=== PATIENT | female | born 1930 | race Caucasian/White ===

== ENCOUNTER 2019-05-21 10:19 | Observation (INO) | payer OTHER ==
[2019-05-21 11:26] LABS: Absolute Lymphocytes (CBC) 0.9 K/uL (0.7-4.9); Basophils % 0.5 % (0-1.3); Hematocrit 40.9 % (36.0-45.0); Lymphocytes % 12.4 % (15.3-44.8); RBC Red Blood Cell Count 4.51 M/uL (3.86-4.86)
[2019-05-21 11:35] LABS: Potassium 4.1 mmol/L (3.5-5.1)
--- NOTE | 2019-05-21 11:58 | RAD REPORT ---
EXAM DESCRIPTION: US - Extremity Venous Uni Ltd - 05/21/2019 11:46 am CLINICAL HISTORY: Left leg pain and swelling COMPARISON: None. TECHNIQUE: Real-time sonographic evaluation of the left lower extremity deep venous system was perfo rmed. FINDINGS: Echogenic debris is present filling are mostly filling the left common femoral, superficia l femoral and popliteal veins. Vessels show little or no compression. Little or no flow is identifiab le. No DVT seen in the ankle or calf visualized veins. No mass or abnormal fluid collection in the so ft tissues. IMPRESSION: Acute left leg deep venous thrombosis from groin to knee.
[2019-05-21] MEDS ORDERED: NA CHLORIDE 0.9% 1,000 ML ONE (12:08)
[2019-05-21] MEDS ORDERED: ENOXAPARIN 80 MG/0.8 ML SQ ONE (12:34)
--- NOTE | 2019-05-21 12:50 | ER ---
Nurse's Notes [facility] Name: Alexandria Gallegos Age: 88 yrs Sex: Female : 1930 Arrival Date: 05/21/2019 Time: 10:21 Bed 15 Private MD: Pritesh Flannery C Diagnosis: Acute embolism and thrombosis of deep veins of lower extremity Presentation: 05/21 10:50 Presenting complaint: Patient states: swelling to left leg since yesterday, denies iw pain. Transition of care: patient was not received from another setting of care. Onset of symptoms was May 20, 2019. Risk Assessment: Do you want to hurt yourself or someone else? Patient reports no desire to harm self or others. Initial Sepsis Screen: Does the patient meet any 2 criteria? No. Patient's initial sepsis screen is negative. Does the patient have a suspected source of infection? No. Patient's initial sepsis screen is negative. Care prior to arrival: None. 10:50 Method Of Arrival: Wheelchair iw 10:50 Acuity: ADI 3 iw Triage Assessment: 11:00 General: Appears in no apparent distress. comfortable, Behavior is calm, cooperative, bp appropriate for age. Pain: Complains of pain in left leg. EENT: No deficits noted. Neuro: No deficits noted. Cardiovascular: No deficits noted. Respiratory: No deficits noted. GI: No signs and/or symptoms were reported involving the gastrointestinal system. : No signs and/or symptoms were reported regarding the genitourinary system. Derm: No deficits noted. Musculoskeletal: Swelling present in left leg. Historical: - Allergies: 11:05 No Known Allergies; iw - Home Meds: 11:05 amlodipine 5 mg tab 1 tab once daily [Active]; Metoprolol Tartrate Oral [Active]; iw vitamins [Active]; - PMHx: 11:05 Hypertension; iw - PSHx: 11:05 bile duct bypass; Cholecystectomy; iw - Immunization history:: Adult Immunizations up to date. - Social history:: Smoking status: Patient/guardian denies using tobacco. - Ebola Screening: : Patient negative for fever greater than or equal to 101.5 degrees Fahrenheit, and additional compatible Ebola Virus Disease symptoms Patient denies exposure to infectious person Patient denies travel to an Ebola-affected area in the 21 days before illness onset No symptoms or risks identified at this time. Screenin:36 Abuse screen: Denies threats or abuse. Denies injuries from another. Nutritional bp screening: No deficits noted. Tuberculosis screening: No symptoms or risk factors identified. Fall Risk None identified. Assessment: 11:05 General: SEE TRIAGE NOTE. bp 12:00 Reassessment: PT TO U/S. bp 13:54 Reassessment: ADMIT IN PROCESS. bp 14:54 Reassessment: appears to be comfortable. denies any pain. patient and family updated on rv length of wait for admission. Vital Signs: 10:50 BP 140 / 72; Pulse 105; Resp 18 S; Temp 98.6(TE); Pulse Ox 100% on R/A; Weight 77.11 kg;bp 11:47 BP 93 / 69; Pulse 97; Resp 17; Temp 97.8(O); Pulse Ox 98% on R/A; mh5 12:34 BP 119 / 58; Pulse 90; Resp 18; Temp 98.1(O); Pulse Ox 97% on R/A; mh5 13:54 BP 128 / 64; Pulse 92; Resp 14; Pulse Ox 97% ; bp 15:30 BP 123 / 73; Pulse 92; Resp 18; Temp 97.9(O); Pulse Ox 97% on R/A; mh5 16:12 BP 129 / 64; Pulse 94; Resp 18; Temp 98.5(O); Pulse Ox 96% on R/A; mh5 ED Course: 10:21 Patient arrived in ED. rg4 10:22 Pritesh Flannery MD is Private Physician. rg4 10:35 Robert Garza MD is Attending Physician. gs 10:39 Ludwig Garcia, RN is Primary Nurse. bp 11:04 Triage completed. iw 11:06 Arm band placed on. iw 11:13 Inserted saline lock: 22 gauge in right antecubital area, using aseptic technique. bp Blood collected. 11:36 Patient has correct armband on for positive identification. Bed in low position. Call bp light in reach. Side rails up X2. 11:48 US Extremity Venous Unilateral Ltd In Process Unspecified. EDMS 12:48 Pritesh Flannery MD is Hospitalizing Provider. gs 14:38 Report received from LUDWIG Lopes RN. rv 16:21 No provider procedures requiring assistance completed. Patient admitted, IV remains in rv place. Administered Medications: 12:07 Drug: NS 0.9% 1000 ml Route: IV; Rate: 1 bolus; Site: right antecubital; bp 16:20 Follow up: IV Status: Completed infusion rv 12:30 Drug: Lovenox 80 mg Route: Sub-Q; Site: right lower abdomen; bp 13:55 Follow up: Response: No adverse reaction bp Outcome: 12:49 Decision to Hospitalize by Provider. gs 16:21 Admitted to Tele accompanied by tech, via stretcher, room 414, with chart, Report rv called to roxanne fernandez 16:21 Condition: good 16:21 Instructed on the need for admit. 16:21 Patient left the ED. rv Signatures: Dispatcher [employer] EDMS Sasha Elena, RN YE iw Zahra Osei 4 Yael Matthews 5 Robert Garza MD MD Ludwig Garcia RN RN bp Vicente, Ronaldo, RN RN rv Corrections: (The following items were deleted from the chart) 12:02 10:50 BP 140 / 72; Pulse 105bpm; Resp 18bpm; Spontaneous; Pulse Ox 100% RA; Temp 98.6F bp Temporal; iw
--- NOTE | 2019-05-21 12:51 | EDPHYS ---
Physician Documentation [facility] Name: Alexandria Gallegos Age: 88 yrs Sex: Female : 1930 Arrival Date: 05/21/2019 Time: 10:21 Bed 15 Private MD: Pritesh Flannery C ED Physician Robert Garza HPI: 05/21 12:27 This 88 yrs old Female presents to ER via Wheelchair with complaints of Leg gs Swelling, Foot Pain. 12:27 The patient presents with pain, swelling. The complaints affect the left quadriceps, gs left knee and left taylor. Context: resulted from an unknown cause. Onset: The symptoms/episode began/occurred yesterday. Modifying factors: the symptoms are aggravated by movement. Associated signs and symptoms: Pertinent negatives chest pain or SHOB. Severity of symptoms: At their worst the symptoms were moderate, in the emergency department the symptoms are unchanged. The patient has not experienced similar symptoms in the past. Historical: - Allergies: 11:05 No Known Allergies; iw - Home Meds: 11:05 amlodipine 5 mg tab 1 tab once daily [Active]; Metoprolol Tartrate Oral [Active]; iw vitamins [Active]; - PMHx: 11:05 Hypertension; iw - PSHx: 11:05 bile duct bypass; Cholecystectomy; iw - Immunization history:: Adult Immunizations up to date. - Social history:: Smoking status: Patient/guardian denies using tobacco. - Ebola Screening: : Patient negative for fever greater than or equal to 101.5 degrees Fahrenheit, and additional compatible Ebola Virus Disease symptoms Patient denies exposure to infectious person Patient denies travel to an Ebola-affected area in the 21 days before illness onset No symptoms or risks identified at this time. ROS: 12:27 All other systems are negative. gs Exam: 12:27 Head/Face: Normocephalic, atraumatic. Eyes: Pupils equal round and reactive to light, gs extra-ocular motions intact. Lids and lashes normal. Conjunctiva and sclera are non-icteric and not injected. Cornea within normal limits. Periorbital areas with no swelling, redness, or edema. ENT: Nares patent. No nasal discharge, no septal abnormalities noted. Tympanic membranes are normal and external auditory canals are clear. Oropharynx with no redness, swelling, or masses, exudates, or evidence of obstruction, uvula midline. Mucous membranes moist. Neck: Trachea midline, no thyromegaly or masses palpated, and no cervical lymphadenopathy. Supple, full range of motion without nuchal rigidity, or vertebral point tenderness. No Meningismus. Chest/axilla: Normal chest wall appearance and motion. Nontender with no deformity. No lesions are appreciated. Cardiovascular: Regular rate and rhythm with a normal S1 and S2. No gallops, murmurs, or rubs. Normal PMI, no JVD. No pulse deficits. Respiratory: Lungs have equal breath sounds bilaterally, clear to auscultation and percussion. No rales, rhonchi or wheezes noted. No increased work of breathing, no retractions or nasal flaring. Abdomen/GI: Soft, non-tender, with normal bowel sounds. No distension or tympany. No guarding or rebound. No evidence of tenderness throughout. Back: No spinal tenderness. No costovertebral tenderness. Full range of motion. Neuro: Awake and alert, GCS 15, oriented to person, place, time, and situation. Cranial nerves II-XII grossly intact. Motor strength 5/5 in all extremities. Sensory grossly intact. Cerebellar exam normal. Normal gait. 12:27 Constitutional: The patient appears alert, awake. 12:27 Musculoskeletal/extremity: Extremities: noted in the left leg: swelling, tenderness, Pulses: are normal with no appreciated deficits, Sensation intact. DVT Exam: pain, swelling, tenderness, erythema. 12:27 Skin: Appearance: Color: erythematous. Vital Signs: 10:50 BP 140 / 72; Pulse 105; Resp 18 S; Temp 98.6(TE); Pulse Ox 100% on R/A; Weight 77.11 kg;bp 11:47 BP 93 / 69; Pulse 97; Resp 17; Temp 97.8(O); Pulse Ox 98% on R/A; mh5 12:34 BP 119 / 58; Pulse 90; Resp 18; Temp 98.1(O); Pulse Ox 97% on R/A; mh5 13:54 BP 128 / 64; Pulse 92; Resp 14; Pulse Ox 97% ; bp 15:30 BP 123 / 73; Pulse 92; Resp 18; Temp 97.9(O); Pulse Ox 97% on R/A; mh5 16:12 BP 129 / 64; Pulse 94; Resp 18; Temp 98.5(O); Pulse Ox 96% on R/A; mh5 MDM: 11:00 Patient medically screened. 12:27 Data reviewed: vital signs, nurses notes. Counseling: I had a detailed discussion with gs the patient and/or guardian regarding: the historical points, exam findings, and any diagnostic results supporting the discharge/admit diagnosis, the need for further work-up and treatment in the hospital. Response to treatment: There is no appreciated change of the patient's symptoms at this time. Physician consultation: A Alma Delia HANKS and will see patient in inpatient room. 05/21 11:01 Order name: CBC with Diff; Complete Time: 11:57 05/21 11:01 Order name: Basic Metabolic Panel; Complete Time: :57 05/21 11:01 Order name: US Extremity Venous Unilateral Ltd; Complete Time: 12:11 05/21 13:11 Order name: Protime (+inr); Complete Time: 15:11 05/21 13:11 Order name: Ptt, Activated; Complete Time: 15:11 05/21 11:58 Order name: Misc. Order: weight; Complete Time: 12:01 05/21 13:10 Order name: Consistent Carb (ADA) 1800 Bg EDTN Administered Medications: 12:07 Drug: NS 0.9% 1000 ml Route: IV; Rate: 1 bolus; Site: right antecubital; bp 16:20 Follow up: IV Status: Completed infusion rv 12:30 Drug: Lovenox 80 mg Route: Sub-Q; Site: right lower abdomen; bp 13:55 Follow up: Response: No adverse reaction bp Disposition: 05/21/19 12:49 Hospitalization ordered by Pritesh Flannery for Inpatient Admission. Preliminary diagnosis is Acute embolism and thrombosis of deep veins of lower extremity. - Bed requested for Telemetry/MedSurg (Inpatient). - Status is Inpatient Admission. rv - Condition is Stable. - Problem is new. - Symptoms have improved. UTI on Admission? No Signatures: Dispatcher [employer] EDMS Janis Alejandre RN RN dw Williams, Irene, RN RN iw Starr, Gregory, MD MD Francisco Garcia RN RN bp Vicente, Ronaldo, RN RN rv Corrections: (The following items were deleted from the chart) 15:29 12:49 Hospitalization Ordered by A Alma Delia HANKS for Inpatient Admission. Preliminary dw diagnosis is Acute embolism and thrombosis of deep veins of lower extremity. Bed requested for Telemetry/MedSurg (Inpatient). Status is Inpatient Admission. Condition is Stable. Problem is new. Symptoms have improved. UTI on Admission? No. gs 16:21 15:29 05/21/2019 12:49 Hospitalization Ordered by A Alma Delia HANKS for Inpatient Admission. rv Preliminary diagnosis is Acute embolism and thrombosis of deep veins of lower extremity. Bed requested for Telemetry/MedSurg (Inpatient). Status is Inpatient Admission. Condition is Stable. Problem is new. Symptoms have improved. UTI on Admission? No. dw
[2019-05-21 14:05] LABS: Protime INR 1.13
[2019-05-21 16:46] VITALS: BMI 33.2
[2019-05-21] MEDS: NA CHLORIDE 0.9% 1,000 ML IV SCH (17:05)
--- NOTE | 2019-05-21 20:27 | RAD REPORT ---
EXAM DESCRIPTION: RAD - Chest Single View - 05/21/2019 8:18 pm CLINICAL HISTORY: DVT left leg Chest pain. COMPARISON: CHEST SINGLE VIEW dated 11/11/2015; ABDOMEN 1 VIEW KUB dated 07/11/2013; ABDOMEN 1 VIEW K UB dated 06/14/2012; CHEST SINGLE VIEW dated 01/16/2011; Extremity Venous Uni Ltd dated 05/21/2019 FINDINGS: Portable technique limits examination quality. The lungs are grossly clear. The heart is normal in size. No displaced fractures. IMPRESSION: No acute intrathoracic process suspected.
[2019-05-21 20:39] LABS: Urine Appearance CLOUDY; Urine Bilirubin NEGATIVE (NEG); Urine Blood 2+ (NEG); Urine Color YELLOW; Urine Glucose NEGATIVE (NEG); Urine Protein NEGATIVE (NEG); Urine Specific Gravity 1.015 (1.005-1.030); Urine Urobilinogen 0.2 mg/dL (0.2-1.0)
[2019-05-21 21:38] LABS: Urine Microscopic Reflex ORDER UMIC
[2019-05-21 21:42] LABS: Urine Bacteria LOADED /HPF (<20); Urine RBC <5 /HPF (NONE SEEN)
[2019-05-21 21:43] LABS: Urine Culture Reflex Order REFLEXED
[2019-05-21] MEDS: ENOXAPARIN 80 MG/0.8 ML SQ SCH (21:54)
--- NOTE | 2019-05-21 22:18 | HP ---
Date of Admission: 05/21/2019 Chief Complaint: Left leg swelling. History Of Present Illness: This is an 88-year-old very pleasant female patient, came into emergency room today with complaints of swelling of her entire left lower extremity that started yesterday. D enies any fall injury. No open wound. No fever. No chills. No pain in her leg. No recent travel for long distance. No recent period of inactivity. After patient was evaluated in the ER, she was d iagnosed as having acute DVT of left lower extremity which was extensive and she was admitted to the hospital. Lovenox injection was given in the emergency room. I saw her this evening. She denies an y chest pain or shortness of breath. Allergies: CODEINE. Medications: Amlodipine 5 mg p.o. daily, Boniva 150 mg p.o. once a month, magnesium 250 mg p.o. bisi y, metoprolol succinate 25 mg p.o. daily. Review of Systems: Cardiovascular: As mentioned above. All other systems reviewed and negative. Past Medical History: Significant for hypertension, impaired fasting glucose, hyperlipidemia, osteop orosis. Past Surgical History: Cholecystectomy, D and C. Family History: Significant for coronary artery disease. Social History: Negative for smoking. No alcohol use. Physical Examination: Vital Signs: Temperature 97.8, pulse 102, respiratory rate 18, blood pressure 117/65, oxygen saturat ion 96%. Height 5 feet, weight 170 pounds. General: Awake, alert, oriented, not in distress. HEENT: Head atraumatic, normocephalic. Conjunctivae nonerythematous. Sclerae white. Mouth, no thr ush or edema noted. Ears/Nose, no mass, lesion, discharge noted. Neck: Supple. No JVD, lymph nodes, bruit, thyromegaly noted. Lungs: Bilateral good equal air entry. Clear to auscultation. No rhonchi. No rales. Heart: Normal heart sounds, no murmur or gallop. Abdomen: Soft, bowel sounds normal. No guarding, rigidity, tenderness, mass, hepatosplenomegaly, di stention, or bruit noted. Extremities: Left lower extremity has swelling involving left thigh and left lower leg. Skin over l eft lower leg is slightly erythematous compared to right side, but normal skin temperature. Skin: No rash, ulcer, cellulitis. Lymphatics: No lymph node enlargement in neck, supraclavicular, infraclavicular region. Neuro: No focal neurological deficit. Chest: Unremarkable. External Genitalia: Deferred. Rectal: Deferred. Laboratory Data: White count 6.9, hemoglobin 13.8, platelets 240. Sodium 141, potassium 4.1, chlori de 106, bicarb 29, BUN 21, creatinine 0.93, glucose 140. Venous Doppler of left leg shows extensive DVT involving left lower extremity. Left common superficial femoral and popliteal veins. Impression: 1.Deep venous thrombosis, acute, left leg. 2.Hypertension. 3.Hyperlipidemia. 4.Osteoporosis. 5.Impaired fasting glucose. 6.Osteoarthritis, multiple sites. Plan: We will admit patient to hospital for further evaluation and management of this problem. Mckenzie ent is appropriate for inpatient and is expected to spend 2 midnights in hospital. Patient was advis ed to stay at complete bedrest. I will evaluate her tomorrow to see whether she can start ambulating tomorrow or not. Lovenox was started in the emergency room. We will continue that. Home medicatio ns will be continued per order and patient was advised to take oral anticoagulation therapy upon disc harge from the hospital for 3 to 6 months. Workup was ordered for hypercoagulable state including pr otein C, protein S, factor V Leiden, homocysteine, prothrombin gene mutation. We will get a chest x- ray done on her tonight. I will see her tomorrow for followup. NUVIA/MODL Voice ID: [id number]
[2019-05-22 05:07] LABS: Absolute Lymphocytes (CBC) 1.9 K/uL (0.7-4.9); Basophils % 0.6 % (0-1.3); Hematocrit 37.2 % (36.0-45.0); Lymphocytes % 27.8 % (15.3-44.8); MPV 7.4 fL (7.6-11.3); RBC Red Blood Cell Count 4.14 M/uL (3.86-4.86)
[2019-05-22 05:42] LABS: Albumin 2.9 g/dL (3.4-5.0); Bilirubin Total 0.5 mg/dL (0.2-1.0); Potassium 3.6 mmol/L (3.5-5.1); Protein, Total 6.7 g/dL (6.4-8.2)
[2019-05-22] MEDS: NA CHLORIDE 0.9% 1,000 ML IV SCH (05:53)
[2019-05-22 08:53] VITALS: O2SAT 95
[2019-05-22] MEDS: ENOXAPARIN 80 MG/0.8 ML SQ SCH (08:55)
[2019-05-22] MEDS ORDERED: SMZ./TMP. 800/160 MG TABLET PO SCH (09:00)
[2019-05-22 09:21] VITALS: BP 146/73; TEMP 97.6
--- NOTE | 2019-05-23 15:19 | DS ---
Date of Discharge: 05/22/2019 Summary: Patient was seen this morning for followup. She is feeling much better. Physical Examination: Vital Signs: Reviewed. HEENT: Examination unremarkable. Lungs: Clear to auscultation. Heart: Sounds normal. Abdomen: Soft. Bowel sounds normal. No guarding, rigidity, tenderness, or distention. Extremities: No leg edema on the right leg. Left leg edema present, but much better today than yest erday. Laboratory Data: Today, white count 6.8, hemoglobin 12.8, platelets 244. Sodium 143, potassium 3.6, chloride 109, bicarb 27, BUN 16, creatinine 0.74, glucose 97. Liver function tests unremarkable. Discharge Medications Instructions: 1.Continue all prior home medications. 2.Do not take any aspirin, Aleve, Motrin type of medications. 3.Start to take Eliquis 5 mg. Patient to take 2 tablets by mouth 2 times a day for 1 week, then 1 t ablet by mouth 2 times a day. 4.Take Bactrim DS 1 tablet by mouth 2 times a day for 1 week as prescribed. 5.Follow up at my office in 1 week. Final Diagnoses: 1.Acute deep vein thrombosis, left leg. 2.Urinary tract infection. 3.Hypertension. 4.Hyperlipidemia. 5.Osteoporosis. 6.Osteoarthritis, multiple sites. 7.Impaired fasting glucose. Hospital Course: This is an 88-year-old female patient admitted to the hospital with complaints of l eft leg swelling. Please see dictated H and P for more information. After patient was evaluated in the emergency room, she was diagnosed as having acute DVT of left leg and she was admitted to the [facility]. She was started on Lovenox injection. The patient was kept at bedrest. This morning when I saw her, she felt much better. She has no signs, symptoms of any pulmonary embolism. Workup was don e for hypercoagulable state and we will follow up on those results on outpatient basis. The patient was instructed to come to the emergency room if she notices any bleeding problem or if she has any he ad injury precautions to avoid any head injury or any skin laceration explained to her while taking a nticoagulant medication. She was instructed to come see me in 1 week. NUVIA/MODL Voice ID: [id number] Report ID: [id number]
[2019-05-25 13:04] LABS: Protein C Antigen 93 % (70-140)
[2019-05-26 14:04] LABS: Prothrombin Gene Analysis Test REPORT
== END 2019-05-22 11:44 | disposition home or self-care (01) ==
LOC: ER 10:19 → INTOOBSV 12:57 → ERHOLD 12:57 → 4TH 16:14
PROVIDERS: ADMIT Internal Medicine; ATTEND Internal Medicine
DX: I82.402 Acute embolism and thrombosis of unspecified deep veins of left lower extremity (principal); N39.0 Urinary tract infection, site not specified; I10 Essential (primary) hypertension; E78.5 Hyperlipidemia, unspecified; M81.0 Age-related osteoporosis without current pathological fracture; R73.01 Impaired fasting glucose; M15.9 Polyosteoarthritis, unspecified
CPT/HCPCS: 96361; 87088; 85025 ×2; 87086; 80048; 36415; 85610; 85730; 87077 ×2; 87186 ×2; 80053; 81241; 81240; 83090; 85302; 85305; 85306; 71045; 93971; 96360; 96372; 99285; J1650 ×3; J7030 ×3; G0378 ×3; 81003; 81015